=== PATIENT | male | born 1940 | race Native Hawaiian/Other Pacific Islander ===

== ENCOUNTER 2018-11-26 01:32 | Emergency (ER) | payer OTHER ==
[~2018-11-26] VITALS: Ht 172.7 cm; Wt 81.6 kg
[2018-11-26 01:52] LABS: PLATELET COUNT 248 K/uL (142-355)
[2018-11-26 02:00] LABS: POTASSIUM 3.9 mmol/L (3.6-5.2)
[2018-11-26 02:20] VITALS: BP 118/77; TEMP 97.9
[2018-11-26] MEDS ORDERED: ANUCORT-HC25 MG RE (11:55)
[2018-11-26] MEDS ORDERED: ASCORBIC ACD1000 MG PO (11:57)
[2018-11-26] MEDS ORDERED: LIPITOR40 MG PO (11:58)
[2018-11-26] MEDS ORDERED: CALCITRIOL0.25 MCG PO (12:16)
[2018-11-26] MEDS ORDERED: CAPS0.024 EN (12:20)
[2018-11-26] MEDS ORDERED: CLON0.5T36 PO (12:23)
[2018-11-26] MEDS ORDERED: B-121000 MC4 PO (12:25)
[2018-11-26] MEDS ORDERED: DONEPEZIL HYDROC5 M1 PO (12:25)
[2018-11-26] MEDS ORDERED: ERGOCALCIF50000 UNIT PO (12:28)
[2018-11-26] MEDS ORDERED: FLUOXETINE20 MG PO (12:29)
[2018-11-26] MEDS ORDERED: GABA300C2 PO (12:29)
[2018-11-26] MEDS ORDERED: HYDR10TA51 PO (12:32)
[2018-11-26] MEDS ORDERED: METO-837 PO (12:33)
[2018-11-26] MEDS ORDERED: NITR0.4S2 SL (12:42)
[2018-11-26] MEDS ORDERED: PANTOPRAZOLE 40MG TA PO (12:43)
[2018-11-26] MEDS ORDERED: POLY GLYCOL3350 MG PO (12:44)
[2018-11-26] MEDS ORDERED: QUETIAPINE25 MG PO (12:45)
[2018-11-26] MEDS ORDERED: RISP0.5T2 PO (12:47)
[2018-11-26] MEDS ORDERED: TAMS0.4C PO (12:48)
[2018-11-26] MEDS ORDERED: BRILINTA90 MG PO (12:49)
== END 2018-11-26 02:20 | disposition other institution (70) ==
LOC: ED 01:32
PROVIDERS: Family Medicine
DX: R45.851 Suicidal ideations (principal); R46.89 Other symptoms and signs involving appearance and behavior; R00.0 Tachycardia, unspecified; I45.19 Other right bundle-branch block; Z04.6 Encounter for general psychiatric examination, requested by authority
CPT/HCPCS: 36415; 80053; 85027; 93005; 99285